=== PATIENT | male | born 1995 | race Caucasian/White ===

== ENCOUNTER 2017-06-20 11:22 | Emergency (ER) | payer SELFPAY ==
[~2017-06-20] VITALS: Ht 175.3 cm; Wt 66.5 kg
[2017-06-20 11:26] VITALS: BP 129/79
[2017-06-20] MEDS ORDERED: KETOROLAC 30 MG/1 ML ONE (11:50)
[2017-06-20] MEDS ORDERED: CYCLOBENZAPRINE 10 MG TABLET ONE (11:53)
[2017-06-20] MEDS ORDERED: CYCLOBENZAPRINE 10 MG TABLET PO ONE (12:00)
[2017-06-20] MEDS ORDERED: KETOROLAC 30 MG/1 ML IM ONE (12:00)
== END 2017-06-20 12:50 | disposition home or self-care (01) ==
LOC: ED 12:04
DX: S39.012A Strain of muscle, fascia and tendon of lower back, initial encounter (principal); X58.XXXA Exposure to other specified factors, initial encounter; Y93.89 Activity, other specified; Y92.89 Other specified places as the place of occurrence of the external cause; Y99.8 Other external cause status
CPT/HCPCS: 96372; 99283; J1885